=== PATIENT | female | born 1975 | race Caucasian/White ===

== ENCOUNTER 2016-05-02 20:32 | Emergency (ER) | payer BC ==
[2016-05-02 20:47] VITALS: BP 148/71
[2016-05-02 21:47] LABS: CHLORIDE,CL 108 mmol/L (98-107); SODIUM,NA 143 mmol/L (136-145)
--- NOTE | 2016-05-03 12:04 | ER ---
Date of Service: 05/02/2016 SUBJECTIVE: The patient presents to the emergency room with complaints of hypoglycemia. She states that she has felt extremely weak recently and feels that she has to eat often to keep her symptoms at bay. The patient states that she has not experienced this in the past. She states that she has been checking her blood sugar using her grandmother's glucometer and has found that her blood sugar to be occasionally in the 60s and 70s. She has had to eat a large amount of food to keep her blood sugar up. The patient states that she is also experiencing some lightheadedness. Denies any difficulty with recent illness. No chest pain or shortness of breath. No weight on. REVIEW OF SYSTEMS: General: No fever or chills. Respiratory: No recent respiratory illnesses. Genitourinary: No blood in her stools. Remainder of her review of systems is noncontributory. PHYSICAL EXAMINATION: General: This is a 41-year-old female patient, in no acute distress. Vital Signs: Initially, blood pressure was 148/71. Orthostatics vitals were obtained and were within normal limits. Pulse rate 68, temperature is 36.4, respiratory rate 16, and O2 saturations 96%. Skin: Warm, pink, and dry. Eyes, PERRLA. Extraocular movements are intact. Ears, TMs are clear. Mouth, oral mucosa is moist. Lungs: Clear to auscultation. Heart: Regular rate and rhythm. Abdomen: Soft and nontender. There is no hepatosplenomegaly noted. There are no masses noted. LABORATORY DATA: WBCs 6.2, hemoglobin is 12.9, platelets are 275, coags PT is 10.4, INR is 0.9. Chemistry; sodium 143, potassium is 3.7, chloride is 108, bicarbonate is 27, BUN is 18, creatinine 0.9. Creatinine clearance is 74.77. GFR is greater than 60, glucose is 87, calcium is 88, corrected calcium is 9.28, magnesium is 1.7, total bilirubin is 0.2. Liver enzymes were within normal limits. Alkaline phosphatase is 39. ASSESSMENT: Hypoglycemia by history. PLAN: The patient was instructed to obtain a glucometer and was given a prescription for the same, and was advised to take her blood sugar several times per week. Again, she does have to eat significant amount of food to keep her blood sugar above 80. Advised her to keep some sort of food on hand in case her blood sugar does drop. All questions were answered. MWK: 05/03/2016 07:19:22 MODL: 05/03/2016 11:53:11 /[id number]
== END 2016-05-02 22:39 | disposition home or self-care (01) ==
LOC: VM.ED 20:32
DX: E16.2 Hypoglycemia, unspecified (principal)
CPT/HCPCS: 36415; 80053; 83735; 85025; 85610; 99285